=== PATIENT | female | born 1985 | race Caucasian/White ===

== ENCOUNTER → 2020-07-21 12:45 | Outpatient (CLI) | payer OTHER, SELFPAY ==
--- NOTE | ~2020-07-21 | US_ITS ---
EXAMINATION: US OB transvaginal DATE: 07/21/2020 13:14 INDICATION: First trimester , Clomid TECHNIQUE: Real-time pelvic transabdominal and transvaginal ultrasound was performed. COMPARISON: None. FINDINGS: The uterus measures 7.5 x 4.9 x 5.2 cm. There is an intrauterine gestational sac. A yolk s ac is identified. heart motion is identified measuring 117 beats per minute (bpm) by M-mode Dop pler. The crown rump length measures 4 mm , which correlates with an estimated gestational age of 6 weeks and 1 day(s) (+/-) 4 day(s). The ovaries are not visualized however no adnexal abnormality is seen. There is no free fluid in the pelvis. IMPRESSION: 1. Live intrauterine with an estimated gestational age of 6 weeks and 1 day(s) (+/-) 4 day( s) and an estimated delivery date of 03/15/2021. Reviewed, dictated and finalized at location A. MOLDER IMPRESSION: 1. Live intrauterine with an estimated gestational age of 6 weeks and 1 day(s) (+/-) 4 day(s) and an estimated delivery date of 03/15/2021.
== END ==
PROVIDERS: Visit Provider Obstetrics & Gynecology Gynecology
DX: O09.01 Supervision of pregnancy with history of infertility, first trimester (principal); Z3A.01 Less than 8 weeks gestation of pregnancy
CPT/HCPCS: 76817

== ENCOUNTER → 2020-08-04 11:15 | Outpatient (CLI) | payer OTHER, SELFPAY ==
--- NOTE | ~2020-08-04 | US_ITS ---
EXAMINATION: US OB transvaginal EXAM DATE: 08/04/2020 11:47 INDICATION: Verify heart tones . 1st trimester. TECHNIQUE: Pelvic obstetrical transabdominal sonogram was performed by a technologist. There are mu ltiple grayscale and Doppler images available for interpretation. Comparison is made to prior examina tion from 07/21/2020. FINDINGS: Uterus measures 9.8 x 6.3 x 7.9 cm. There is intrauterine gestation sac. pole with heart rate confirmed at 182 beats per minute. The 2 cm crown-rump length corresponds to estimated ge stational age by ultrasound of 8 weeks 4 days. Yolk sac is identified. There is no sonographic calixto dence of subchorionic hemorrhage. Right ovary not identified. The left is morphologically normal. IMPRESSION: Early live intrauterine gestation, age by ultrasound 8 weeks 4 days. Reviewed, dictated and finalized at location B. ISING MACHINE OPERATOR IMPRESSION: Early live intrauterine gestation, age by ultrasound 8 weeks 4 day s.
== END ==
PROVIDERS: Visit Provider Nurse Practitioner
DX: Z34.91 Encounter for supervision of normal pregnancy, unspecified, first trimester (principal); Z3A.08 8 weeks gestation of pregnancy
CPT/HCPCS: 76817

== ENCOUNTER 2021-01-08 14:30 | Outpatient (CLI) | payer OTHER, SELFPAY ==
[2021-01-08] VITALS (11 sets, daily range): BP systolic 119–139; BP diastolic 63–77; PULSE 86–109; TEMP 37.1
[2021-01-08 15:15] LABS: Basophils Percent Auto 0.3 % (0.2-1.2); Eosinophils Absolute Auto 0.1 K/mm3 (0-0.3); Eosinophils Percent Auto 0.9 % (0-4.4); Hematocrit 38.1 % (37.0-47.0); Hemoglobin 12.6 g/dL (12.0-15.0); Immature Granulocyte Absolute 0.02 K/mm3 (0.00-0.031); Immature Granulocyte Percent A 0.2 % (0-0.5); Lymphocytes Absolute Auto 3.19 K/mm3 (0.9-3.2); Lymphocytes Percent Auto 30.2 % (18.3-44.2); Mean Corpuscular HGB Conc 33.1 g/dl (32-36); Mean Corpuscular Hemoglobin 31.4 pg (26-34); Mean Platelet Volume 10.5 fl (7.4-10.4); Monocytes Absolute Auto 0.8 K/mm3 (0.1-0.6); Monocytes Percent Auto 7.9 % (2.6-8.5); Neutrophils Absolute Auto 6.4 K/mm3 (1.3-6.7); Neutrophils Percent Auto 60.5 % (45.5-73.1); Platelet Count Result 416 k/mm3 (150-375); Red Blood Count 4.01 M/mm3 (4.2-5.4); Red Cell Distribution Width 13.8 % (11.5-14.5); White Blood Count 10.6 K/mm3 (4.5-10.0)
[2021-01-08 15:17] LABS: Add Urine Microscopic? NO; Appearance Urine Clear (Clear); Bilirubin Urine Negative (Negative); Blood Urine Negative (Negative); Color Urine Straw (Yellow); Glucose Urine UA Negative (Negative); Ketones Urine Negative (Negative); Leukocyte Esterase Ur Negative LEU/UL (NEGATIVE); Nitrate Urine Negative (Negative); Protein Urine Negative (Negative); Specific Grav Ur 1.009 (1.001-1.035); Urobilinogen Urine Negative mg/dL (<2.0)
[2021-01-08 15:26] LABS: Alanine Aminotransferase 23 U/L (4-35); Albumin Level 3.4 g/dL (3.5-5.1); Alkaline Phosphatase 78 U/L (38-126); Anion Gap 7 mmol/L (8-16); Aspartate Amino Transferase 23 U/L (14-36); Bilirubin,Total 0.1 mg/dL (0.2-1.3); Blood Urea Nitrogen 6 mg/dL (7-17); Calcium 9.4 mg/dL (8.4-10.2); Carbon Dioxide 22 mmol/L (22-30); Chloride 107 mmol/L (98-107); Estimated Glomerular Filt Rate > 60; Glucose 122 mg/dL (65-105); Potassium 3.7 mmol/L (3.4-5.0); Sodium 136 mmol/L (137-145); Uric Acid 2.9 mg/dL (2.5-7.5)
[2021-01-08 16:06] LABS: Creatinine Urine 48.4 mg/dL; Total Protein Urine Random 20 mg/dL; Ur Ttl Prot Creatinine Ratio 0.41 mg/mg (0-0.20)
== END 2021-01-08 17:45 | disposition home or self-care (01) ==
LOC: ANHOBOP 14:34 → ANHOBPP 14:35
PROVIDERS: Visit Provider Obstetrics & Gynecology Gynecology
DX: O13.9 Gestational [pregnancy-induced] hypertension without significant proteinuria, unspecified trimester (principal); R51.9 Headache, unspecified; Z3A.00 Weeks of gestation of pregnancy not specified
CPT/HCPCS: 36415; 59025; 80053; 81003; 82570; 84156; 84550; 85025; 87086; 99199; A9270

== ENCOUNTER 2021-02-18 10:42 | Outpatient (RCR) | payer OTHER, SELFPAY ==
[2021-01-14 13:07] VITALS: BP 122/81; PULSE 98
[2021-02-16 14:13] VITALS: BP 123/74; PULSE 96
[2021-02-18 11:52] VITALS: BP 135/82
== END 2021-03-01 23:59 | disposition home or self-care (01) ==
LOC: ANHOBOP 10:42
PROVIDERS: Visit Provider Obstetrics & Gynecology Gynecology
DX: O36.8120 Decreased fetal movements, second trimester, not applicable or unspecified (principal); Z3A.25 25 weeks gestation of pregnancy; O16.3 Unspecified maternal hypertension, third trimester; Z3A.32 32 weeks gestation of pregnancy; Z3A.36 36 weeks gestation of pregnancy; O14.93 Unspecified pre-eclampsia, third trimester; Z3A.37 37 weeks gestation of pregnancy
CPT/HCPCS: 59025

== ENCOUNTER 2021-02-19 04:51 | Inpatient (IN) | payer OTHER, SELFPAY ==
[2021-02-19] VITALS (64 sets, daily range): BP systolic 82–156; BP diastolic 49–93; PULSE 31–127; RESP 16–18; TEMP 36.3–37.1; O2SAT 89–100; BMI 42.7
--- NOTE | 2021-02-19 04:51 | LDADM ---
This patient, Deborah Velázquez, was admitted to Labor/Delivery/Recovery 104 on 02/19/21 at 04:51. Plans for labor, pain management and were discussed with patient. Patient/family oriented to hospital policies and general routines including ID bracelet, bed and alarms, visiting hours, pain management, procedures, bathroom and other care routines, personal items, smoking policy, room service/diet and guest tray routines, security routines, and visiting hours. Patient/Family are encouraged to report perceived risks to care and to ask questions if they do not understand what they are told or what they should do. See OBIX for further documentation.
[2021-02-19] MEDS: AMPICILLIN 2 GM/NS 100 ML 2 GM/100 ML BAG IVPB (05:23)
[2021-02-19] MEDS: LACTATED RINGERS 1,000 ML 125 ML IV CONT ×2 (05:24→08:49)
[2021-02-19] MEDS: OXYTOCIN 30 UNITS/NS 500 ML 30 UNITS/500 ML BAG IV CONT (05:24)
[2021-02-19 05:38] LABS: Basophils Percent Auto 0.2 % (0.2-1.2); Eosinophils Absolute Auto 0.1 K/mm3 (0-0.3); Eosinophils Percent Auto 0.8 % (0-4.4); Hematocrit 38.1 % (37.0-47.0); Hemoglobin 12.4 g/dL (12.0-15.0); Immature Granulocyte Absolute 0.04 K/mm3 (0.00-0.031); Immature Granulocyte Percent A 0.4 % (0-0.5); Lymphocytes Absolute Auto 3.29 K/mm3 (0.9-3.2); Lymphocytes Percent Auto 30.9 % (18.3-44.2); Mean Corpuscular HGB Conc 32.5 g/dl (32-36); Mean Corpuscular Volume 92.3 fl (80-100); Mean Platelet Volume 11.5 fl (7.4-10.4); Monocytes Absolute Auto 0.8 K/mm3 (0.1-0.6); Monocytes Percent Auto 7.2 % (2.6-8.5); Neutrophils Absolute Auto 6.4 K/mm3 (1.3-6.7); Neutrophils Percent Auto 60.5 % (45.5-73.1); Platelet Count Result 402 k/mm3 (150-375); Red Blood Count 4.13 M/mm3 (4.2-5.4); Red Cell Distribution Width 13.5 % (11.5-14.5); White Blood Count 10.6 K/mm3 (4.5-10.0)
[2021-02-19 05:47] LABS: Alanine Aminotransferase 22 U/L (4-35); Albumin Level 3.4 g/dL (3.5-5.1); Alkaline Phosphatase 108 U/L (38-126); Anion Gap 9 mmol/L (8-16); Aspartate Amino Transferase 25 U/L (14-36); Bilirubin,Total 0.4 mg/dL (0.2-1.3); Blood Urea Nitrogen 7 mg/dL (7-17); Calcium 9.1 mg/dL (8.4-10.2); Carbon Dioxide 21 mmol/L (22-30); Chloride 105 mmol/L (98-107); Estimated CRCL calculation 189 ml/min; Estimated Glomerular Filt Rate > 60; Glucose 113 mg/dL (65-105); Sodium 135 mmol/L (137-145)
[2021-02-19 05:48] LABS: Uric Acid 3.2 mg/dL (2.5-7.5)
--- NOTE | 2021-02-19 05:59 | WPDANESEPP ---
Anes - Eval Pre Procedure Procedure: labor epidural Date/Time: 02/19/21 05:59 Surgeon: delta Pre Op Diagnosis: IOL Patient Data Age: 35 Gender: F Height: 1.75 m Weight: 131.4 kg Last Vital Signs Pulse 93 02/19/21 05:45 BP 133/75 02/19/21 05:45 Allergies Allergy/AdvReac Type Severity Reaction Status Date / Time No Known Allergies Allergy Verified 02/10/21 14:09 Home Medications Medication Instructions Recorded Confirmed Type prenat.vits,tom,cfq-[id number] 1 tablet DAILY 12/01/20 02/19/21 History cholecalciferol (vitamin D3) 125 mcg PO BID 02/10/21 02/10/21 History [Vitamin D3] labetalol 100 mg PO TID 02/10/21 02/19/21 History Laboratory Tests 02/19/21 02/19/21 02/19/21 05:16 05:16 05:16 WBC 10.6 K/mm3 H K/mm3 (4.5-10.0) RBC 4.13 M/mm3 L M/mm3 (4.2-5.4) Hgb 12.4 g/dL g/dL (12.0-15.0) Hct 38.1 % % (37.0-47.0) MCV 92.3 fl fl (80-100) MCH 30.0 pg pg (26-34) MCHC 32.5 g/dl g/dl (32-36) RDW 13.5 % % (11.5-14.5) Plt Count 402 k/mm3 H k/mm3 (150-375) MPV 11.5 fl H fl (7.4-10.4) Immature Gran % (Auto) 0.4 % % (0-0.5) Neut % (Auto) 60.5 % % (45.5-73.1) Lymph % (Auto) 30.9 % % (18.3-44.2) Moore % (Auto) 7.2 % % (2.6-8.5) Eos % (Auto) 0.8 % % (0-4.4) Baso % (Auto) 0.2 % % (0.2-1.2) Lymph # (Auto) 3.29 K/mm3 H K/mm3 (0.9-3.2) Moore # (Auto) 0.8 K/mm3 H K/mm3 (0.1-0.6) Eos # (Auto) 0.1 K/mm3 K/mm3 (0-0.3) Baso # (Auto) 0.0 K/mm3 K/mm3 (0.0-0.1) Abs Immat Gran (auto) 0.04 K/mm3 H K/mm3 (0.00-0.031) Absolute Neuts (auto) 6.4 K/mm3 K/mm3 (1.3-6.7) Absolute Nucleated RBC 0.0 K/mm3 K/mm3 (0.0-0.012) Nucleated RBC % 0.0 % % (0.0-0.2) Sodium Potassium Chloride Carbon Dioxide Anion Gap BUN Creatinine Estim Creat Clear Calc Estimated GFR Glucose Uric Acid 3.2 mg/dL mg/dL (2.5-7.5) Calcium Total Bilirubin AST ALT Alkaline Phosphatase Total Protein Albumin RPR Pending 02/19/21 05:16 WBC RBC Hgb Hct MCV MCH MCHC RDW Plt Count MPV Immature Gran % (Auto) Neut % (Auto) Lymph % (Auto) Moore % (Auto) Eos % (Auto) Baso % (Auto) Lymph # (Auto) Moore # (Auto) Eos # (Auto) Baso # (Auto) Abs Immat Gran (auto) Absolute Neuts (auto) Absolute Nucleated RBC Nucleated RBC % Sodium 135 mmol/L L mmol/L (137-145) Potassium 4.0 mmol/L mmol/L (3.4-5.0) Chloride 105 mmol/L mmol/L (98-107) Carbon Dioxide 21 mmol/L L mmol/L (22-30) Anion Gap 9 mmol/L mmol/L (8-16) BUN 7 mg/dL mg/dL (7-17) Creatinine 0.50 mg/dL L mg/dL (0.7-1.0) Estim Creat Clear Calc 189 ml/min ml/min Estimated GFR > 60 (59 - ) Glucose 113 mg/dL H mg/dL (65-105) Uric Acid Calcium 9.1 mg/dL mg/dL (8.4-10.2) Total Bilirubin 0.4 mg/dL mg/dL (0.2-1.3) AST 25 U/L U/L (14-36) ALT 22 U/L U/L (4-35) Alkaline Phosphatase 108 U/L U/L (38-126) Total Protein 7.0 g/dL g/dL (6.3-8.2) Albumin 3.4 g/dL L g/dL (3.5-5.1) RPR Patient hx anesthesia problems: none Family hx anesthesia problems: none PMFSH Family History Family History Other No pertinent family history Social History Social History Smoking status: Never smoker Substance use: never Spiritual care concerns: No Exam Day of Procedure 02/19/21 05:59
[2021-02-19] MEDS: LABETALOL HCL 100 MG TABLET PO ×2 (07:31→20:41)
--- NOTE | 2021-02-19 07:43 | WPDOBADMIT ---
Obstetrics - Admit Note Admission Note: record reviewed. No pertinent additions to the history and/or any subsequent changes in the physical findings that are not consistent with the expected course of the were found. AROm clear fluid /-2 vertex Additions to the history and/or subsequent changes in the physical findings follow. None.
[2021-02-19] MEDS: AMPICILLIN 1 GM/NS 50 ML 1 GM/50 ML BAG IVPB (09:20)
--- NOTE | 2021-02-19 10:24 | P.PCNOB_ITS ---
OB - Delivery Note Procedure Delivery date: 02/19/21 Procedure: events: Induced HTN (preeclampsia diagnosis at 28 wk) Intrapartal events: None Induction method: AROM and per pitocin protocol Delivery monitor: external FHT and external uterine Route of delivery: Laceration Description: Perineal - 2nd Degree Delivery repair: vicryl (3-0) Specimen: Yes (placenta) Quantitative Blood Loss (ml): 250 Anesthesia type: Epidural Disposition: floor Narrative: cord around neck, arm, and leg [place] Baby Date of : 02/19/21 Weeks of gestation at delivery: 37 gender: Female Weight (pounds): 6 Weight (ounces): 7 presentation: vertex Placenta delivery description: Spontaneous cord vessel description: 3 Vessels, Nuchal Cord and Around Extremity x2 score one minute: 8 score five minutes: 9
--- NOTE | 2021-02-19 10:26 | PM.OBDSVD ---
DS: Admitting Diagnosis Admitting Diagnosis Admitting Diagnosis: IUP 37 wks Preeclampsia DS: Discharge Diagnosis Discharge Diagnosis (1) 37 weeks gestation of : Code(s): Z3A.37 - 37 weeks gestation of Status: Acute (2) Preeclampsia: Code(s): O14.90 - Unspecified pre-eclampsia, unspecified trimester Status: Acute (3) (normal spontaneous vaginal delivery): Code(s): O80 - Encounter for full-term uncomplicated delivery Status: Acute OB - DS: Summary OB Procedures : NST, PIH Mgmt and Ultrasound OB Procedures Intrapartum: Spontaneous Vag Delivery OB Procedures: : None Peripartum Data Delivery Method: Natural Vaginal Laceration Description: Perineal - 2nd Degree complications: none Status at Discharge Functional status at discharge: independent ambulation Overall status at discharge: patient is progressing back to baseline Time Spent with Patient Time attestation: Total time spent providing and/or coordinating discharge services: DS: Data Data Completed and Pending Labs on day of discharge: Labs from last 24 hours 02/19/21 02/19/21 02/19/21 05:16 05:16 05:16 WBC RBC Hgb Hct MCV MCH MCHC RDW Plt Count MPV Immature Gran % (Auto) Neut % (Auto) Lymph % (Auto) Barren % (Auto) Eos % (Auto) Baso % (Auto) Lymph # (Auto) Barren # (Auto) Eos # (Auto) Baso # (Auto) Abs Immat Gran (auto) Absolute Neuts (auto) Absolute Nucleated RBC Nucleated RBC % Sodium 135 L Potassium 4.0 Chloride 105 Carbon Dioxide 21 L Anion Gap 9 BUN 7 Creatinine 0.50 L Estim Creat Clear Calc 189 Estimated GFR > 60 Glucose 113 H Uric Acid Calcium 9.1 Total Bilirubin 0.4 AST 25 ALT 22 Alkaline Phosphatase 108 Total Protein 7.0 Albumin 3.4 L RPR Pending Blood Type A Positive Antibody Screen Negative 02/19/21 02/19/21 05:16 05:16 WBC 10.6 H RBC 4.13 L Hgb 12.4 Hct 38.1 MCV 92.3 MCH 30.0 MCHC 32.5 RDW 13.5 Plt Count 402 H MPV 11.5 H Immature Gran % (Auto) 0.4 Neut % (Auto) 60.5 Lymph % (Auto) 30.9 Barren % (Auto) 7.2 Eos % (Auto) 0.8 Baso % (Auto) 0.2 Lymph # (Auto) 3.29 H Barren # (Auto) 0.8 H Eos # (Auto) 0.1 Baso # (Auto) 0.0 Abs Immat Gran (auto) 0.04 H Absolute Neuts (auto) 6.4 Absolute Nucleated RBC 0.0 Nucleated RBC % 0.0 Sodium Potassium Chloride Carbon Dioxide Anion Gap BUN Creatinine Estim Creat Clear Calc Estimated GFR Glucose Uric Acid 3.2 Calcium Total Bilirubin AST ALT Alkaline Phosphatase Total Protein Albumin RPR Blood Type Antibody Screen Discharge Plan Discharge Attending physician on discharge: Radhika Dash Discharging Clinician: Radhika Dash Patient Disposition: Home, Self-Care Activity: may shower and pelvic rest Diet: regular Patient Instructions: Antibiotic Form Stand Alone Forms: General Discharge Information Follow-up/Referrals: Radhika Dash MD [Physician] - 6 Weeks Discharge Medications: Continued cholecalciferol (vitamin D3) [Vitamin D3] 125 mcg (5,000 unit) Tablet 125 mcg PO BID RF: 0 Discontinued prenat.vits,tom,vsh-lmsw-auixp Tablet 1 tablet DAILY RF: 0 labetalol 100 mg Tablet 100 mg PO TID RF: 0 Date of admission: 02/19/21 04:51 Primary Care Provider: PHYSICIAN,FRIED CAKE MAKER Admitting Provider: Radhika Dash Attending physician on admission: Radhika Dash Condition: Stable
[2021-02-19] MEDS: OXYTOCIN 30 UNITS/NS 500 ML 30 UNITS/500 ML BAG 125 UNITS IV CONT (10:48)
[2021-02-19] MEDS: WITCH HAZEL 40 PADS 1 PAD TOPICAL (12:46)
[2021-02-19] MEDS: BENZOCAINE 20% AER SPR (*SP) 56 GM CAN 1 SPRAY TOPICAL (12:46)
--- NOTE | 2021-02-19 13:23 | PC.NURSE ---
Patient transferred to post room #292 per wheelchair from labor and delivery. Support person present. Oriented to unit, room, information board, rooming in, admission packet and security measures. Patient verbalizes understanding.
[2021-02-19 14:16] LABS: Rapid Plasma Reagin Non-Reactive (NonReactive)
[2021-02-19] MEDS: IBUPROFEN 600 MG TABLET PO (20:42)
[2021-02-20] VITALS (7 sets, daily range): BP systolic 116–131; BP diastolic 66–79; PULSE 87–97; RESP 16–18; TEMP 36.6–36.9; O2SAT 96–100
[2021-02-20] MEDS: IBUPROFEN 600 MG TABLET PO ×3 (04:12→17:08)
[2021-02-20 05:06] LABS: Hematocrit 33.3 % (37.0-47.0); Hemoglobin 10.6 g/dL (12.0-15.0)
[2021-02-20] MEDS: DOCUSATE SODIUM 100 MG CAPSULE PO (08:32)
[2021-02-20] MEDS: WITCH HAZEL 40 PADS 1 PAD TOPICAL (08:32)
[2021-02-20] MEDS: LABETALOL HCL 100 MG TABLET PO (08:32)
[2021-02-20] MEDS: BENZOCAINE 20% AER SPR (*SP) 56 GM CAN 1 SPRAY TOPICAL (08:32)
--- NOTE | 2021-02-20 10:51 | PM.OBPNVD ---
OB - PN: Subj Subjective Date/time seen: 02/20/21 10:51 Patient comments: no complaints and pain well controlled baby status: doing well OB - PN: Obj Data Labs CBC & Chem 7: 02/20/21 04:07 02/19/21 05:16 Labs: Laboratory Results - last 24 hr 02/19/21 02/20/21 05:16 04:07 Hgb 10.6 L Hct 33.3 L RPR Non-reactive OB - PN A/P Assessment and Plan (1) (normal spontaneous vaginal delivery): Code(s): O80 - Encounter for full-term uncomplicated delivery Status: Acute Assessment and Plan: Continue care (2) Preeclampsia: Code(s): O14.90 - Unspecified pre-eclampsia, unspecified trimester Status: Acute Assessment and Plan: dc labetalol continue close observation Time Spent With Patient Time: Total time spent is greater than 50% in coordination of care (as documented) at patient's floor/unit and/or counseling patient: Exam : Bimanual exam- vagina & uterus: other (Uterus firm, nt @U)
--- NOTE | 2021-02-20 14:08 | WPDANLDPN2 ---
Anes-Prog Note L&D Date/Time: 02/20/21 14:08 Comfortable throughout: labor and delivery Neuraxial method: epidural Epidural/Spinal procedure site: clean & non-tender Neuro status: Neuro function grossly intact. Cardiovascular status: normal Respiratory status: normal Airway patency: baseline Mental status: baseline Post-Op hydration status: normal Vital Signs: Last Vital Signs Temp 36.7 C 02/20/21 12:00 Pulse 94 02/20/21 12:00 Resp 18 02/20/21 12:00 BP 120/78 02/20/21 12:00 Pulse Ox 100 02/20/21 12:00 Pain score (VAS): 08/23 I/O: Intake & Output 02/19/21 02/20/21 02/20/21 23:59 07:59 15:59 Intake Total 484 252 1921 Output Total 7634 035 5427 Balance -750 -550 200 Post-procedural complaints: none Patient feedback: Patient satisfied with anesthetic care.
[2021-02-21] VITALS: BP 110/71; PULSE 81; RESP 16; TEMP 36.5; O2SAT 97
[2021-02-21 03:30] VITALS: BP 114/68; PULSE 88; RESP 16; TEMP 36.6; O2SAT 96
[2021-02-21 08:00] VITALS: BP 131/61; BP 131/76; PULSE 91; RESP 16; RESP 18; TEMP 36.8; O2SAT 100
--- NOTE | 2021-02-21 08:00 | PC.NURSE ---
Patient was given the opportunity to view the discharge video Mother & Baby Care, The First Two Weeks and to ask questions. Patient declined viewing the video and has been given the mother/baby guide for home reference.
[2021-02-21] MEDS: IBUPROFEN 600 MG TABLET PO (08:22)
[2021-02-21] MEDS: DOCUSATE SODIUM 100 MG CAPSULE PO (08:23)
--- NOTE | 2021-02-21 09:44 | PM.OBPNVD ---
OB - PN: Subj Subjective Date/time seen: 02/21/21 09:44 Patient comments: no complaints and pain well controlled baby status: doing well and bottle feeding well OB - PN: Obj Data Labs CBC & Chem 7: 02/20/21 04:07 02/19/21 05:16 OB - PN A/P Assessment and Plan (1) Preeclampsia: Code(s): O14.90 - Unspecified pre-eclampsia, unspecified trimester Status: Acute Assessment and Plan: BP stable off labetalol Plan day: 2 Plan: routine care and discharge home Comments: unsure bc plan Time Spent With Patient Time: Total time spent is greater than 50% in coordination of care (as documented) at patient's floor/unit and/or counseling patient: Exam : Bimanual exam- vagina & uterus: other (Uterus firm, nt @U)
--- NOTE | 2021-02-21 10:07 | PC.NURSE ---
Self care and infant care discharge instructions given to pt. including follow up visit date and time. Mother verbalized understanding. No questions or concerns voiced. Very pleasant and cooperative. at side. Anxious for discharge.
[2021-02-23 08:41] VITALS: BP 130/88; PULSE 98; RESP 16; TEMP 37; O2SAT 99
== END 2021-02-21 11:28 | disposition home or self-care (01) | DRG 807 ==
LOC: ANHLDR 10:27 → ANHOB2 13:29
PROVIDERS: Admitting Provider Obstetrics & Gynecology Gynecology; Visit Provider Obstetrics & Gynecology Gynecology
DX: O14.94 Unspecified pre-eclampsia, complicating childbirth (principal); Z37.0 Single live birth; Z3A.37 37 weeks gestation of pregnancy; O99.824 Streptococcus B carrier state complicating childbirth; O70.1 Second degree perineal laceration during delivery; O62.3 Precipitate labor; O69.82X0 Labor and delivery complicated by other cord entanglement, without compression, not applicable or unspecified
CPT/HCPCS: 36415; 59025; 80053; 84550; 85014; 85018; 85025; 86592; 86850; 86900; 86901; 88307; A9270; J0290; J2590; J2795; J7120